=== PATIENT | male | born 1995 | race Caucasian/White ===

== ENCOUNTER 2023-11-26 12:35 | Emergency (ER) | payer MEDICAID ==
[~2023-11-26] VITALS: Ht 188 cm; Wt 142.9 kg
[2023-11-26 12:44] VITALS: BP_SYST 133; PULSE 96; RESP 20; TEMP 97.5; O2SAT 95
[2023-11-26] MEDS ORDERED: AUG875 PO (12:53)
== END 2023-11-26 13:16 | disposition home or self-care (01) ==
LOC: SED 12:35
DX: J02.9 Acute pharyngitis, unspecified (principal)
CPT/HCPCS: 99283